=== PATIENT | female | born 1955 | race Caucasian/White ===

== ENCOUNTER 2024-09-22 08:53 | Inpatient (IN) | payer MEDICARE ==
--- NOTE | 2024-09-22 09:19 | ED ---
Skin/Abscess/FB HPI - General Chief complaint: Skin/Abscess/Foreign Body Stated complaint: Rash Time Seen by Provider: 09/22/24 09:17 Source: patient, RN notes reviewed Mode of arrival: ambulatory Limitations: no limitations - History of Present Illness Initial comments: 69-year-old female presenting to the ER for evaluation of a rash. Patient reports a past medical history significant of rheumatoid arthritis currently on methotrexate and lymphoma. Patient reports 10 days ago she noticed small bumps to right lower back. She looked in the mirror and noticed a rash. The following day she was seen at urgent care and started on acyclovir. She states over the past 10 days she has noticed rash to be spreading to her abdomen/groin and now involving anterior proximal right thigh. She reports over the past given she also noted spreading of rash superiorly on abdomen. Patient reports active blisters as well. She denies known fevers but admits to hot flashes and chills. Patient denies a history of MRSA. She contacted PCP today who instructed her to come to the ER for further evaluation given worsening of rash on antiviral medication. No other complaints. - Related Data Home Medications Medication Instructions Recorded Confirmed Albuterol Inhaler [Ventolin Hfa 2 puff INHALATION RT-QID PRN 09/22/24 09/22/24 Inhaler] Albuterol Nebulized [Ventolin 2.5 mg INHALATION RT-QID PRN 09/22/24 09/22/24 Nebulized] Anastrozole [Arimidex] 1 mg PO DAILY 09/22/24 09/22/24 Celecoxib [CeleBREX] 200 mg PO DAILY 09/22/24 09/22/24 Cyanocobalamin (Vitamin B-12) 1,000 mcg PO DAILY 09/22/24 09/22/24 [Vitamin B-12] Cyclobenzaprine [Flexeril] 5 - 10 mg PO DAILY PRN 09/22/24 09/22/24 Diclofenac Sodium Gel [Voltaren 1% 1 applic TOPICAL QID PRN 09/22/24 09/22/24 Gel] Fluticasone/Umeclidin/Vilanter 1 puff INHALATION RT-DAILY PRN 09/22/24 09/22/24 [Trelegy Ellipta 200-62.5-25] Folic Acid 3.2 mg PO DAILY 09/22/24 09/22/24 Gabapentin [Neurontin] 100 mg PO W/SUPPER 09/22/24 09/22/24 Gabapentin [Neurontin] 200 mg PO HS 09/22/24 09/22/24 HYDROcodone/APAP 10-325MG [[place] 0.5 tab PO QID 09/22/24 09/22/24 10-325] Latanoprost [Latanoprost 0.005%] 1 drop BOTH EYES HS 09/22/24 09/22/24 Levothyroxine Sodium [Synthroid] 125 mcg PO DAILY 09/22/24 09/22/24 Magnesium Oxide [Mag-Ox] 500 mg PO DAILY 09/22/24 09/22/24 Metoprolol Tartrate [Lopressor] 50 mg PO BID 09/22/24 09/22/24 Multivitamins, Thera [Multivitamin 1 tab PO DAILY 09/22/24 09/22/24 (formulary)] Nystatin 100,000 Unit/gm Powd 1 applic TOPICAL BID PRN 09/22/24 09/22/24 [Mycostatin Powder] Omeprazole Magnesium [PriLOSEC OTC] 20 mg PO DAILY PRN 09/22/24 09/22/24 Telmisartan [Micardis] 40 mg PO DAILY 09/22/24 09/22/24 amLODIPine [Norvasc] 10 mg PO DAILY 09/22/24 09/22/24 metHOTREXate sodium 2.5 mg PO DIRECTED 09/22/24 09/22/24 sulfaSALAzine [Azulfidine] 1,000 mg PO BID 09/22/24 09/22/24 timoloL [timoloL 0.5% Ophth Soln] 1 drop BOTH EYES DAILY 09/22/24 09/22/24 Allergies Allergy/AdvReac Type Severity Reaction Status Date / Time amoxicillin AdvReac Unknown Verified 09/22/24 11:24 Review of Systems ROS Statement: Those systems with pertinent positive or pertinent negative responses have been documented in the HPI. ROS Other: All systems not noted in ROS Statement are negative. Past Medical History Past Medical History: Cancer, Hypertension, Rheumatoid Arthritis (RA) History of Any Multi-Drug Resistant Organisms: None Reported Past Surgical History: Breast Surgery, Orthopedic Surgery Past Psychological History: No Psychological Hx Reported Smoking Status: Former smoker Past Alcohol Use History: Occasional Past Drug Use History: None Reported General Exam Limitations: no limitations General appearance: alert, in no apparent distress Respiratory exam: Present: normal lung sounds bilaterally. Absent: respiratory distress, wheezes, rales, rhonchi, stridor Cardiovascular Exam: Present: regular rate, normal rhythm, normal heart sounds. Absent: systolic murmur, diastolic murmur, rubs, gallop, clicks Neurological exam: Present: alert, oriented X3, CN II-XII intact Skin exam: Present: warm, dry, intact, normal color, rash (Erythematous macular rash consistent with shingles to right L2 dermatome. There is also involvement of L1 groin. Vesicles present. Rash does not cross midline.) Course Vital Signs 09/22/24 09/22/24 09/22/24 09:00 11:00 13:00 Temperature 97.8 F Pulse Rate 116 H 78 86 Respiratory 16 20 20 Rate Blood Pressure 178/96 140/89 130/86 O2 Sat by Pulse 95 98 98 Oximetry Medical Decision Making - Medical Decision Making Was pt. sent in by a medical professional or institution (, PA, MOLDING SUPERVISOR, urgent care, hospital, or care home...) When possible be specific @ -No Did you speak to anyone other than the patient for history (EMS, parent, family, police, friend...)? What history was obtained from this source @ -No Did you review nursing and triage notes (agree or disagree)? Why? @ -I reviewed and agree with nursing and triage notes Were old charts reviewed (outside hosp., previous admission, EMS record, old EKG, old radiological studies, urgent care reports/EKG's, care home records)? Report findings @ -No old charts were reviewed Differential Diagnosis (chest pain, altered mental status, abdominal pain women, abdominal pain men, vaginal bleeding, weakness, fever, dyspnea, syncope, headache, dizziness, GI bleed, back pain, seizure, CVA, palpatations, mental health, musculoskeletal)? @ -Herpes zoster, allergic reaction, Benjamin-Toro syndrome, cellulitis... This list is not meant to be all-inclusive EKG interpreted by me (3pts min.). @ -None done X-rays interpreted by me (1pt min.). @ -None done CT interpreted by me (1pt min.). @ -None done U/S interpreted by me (1pt. min.). @ -None done What testing was considered but not performed or refused? (CT, X-rays, U/S, labs)? Why? @ -None What meds were considered but not given or refused? Why? @ -Patient refused analgesic medications Did you discuss the management of the patient with other professionals (professionals i.e. , JUNIOR, MOLDING SUPERVISOR, lab, RT, psych nurse, transition social worker, acetylene plant operator, teacher, quality officer, telehealth case manager)? Give summary @ -Case discussed with Uriel jerry MOLDING SUPERVISOR, accepts admission. Was smoking cessation discussed for >3mins.? @ -No Was critical care preformed (if so, how long)? @ -No Were there social determinants of health that impacted care today? How? (H omelessness, low income, unemployed, alcoholism, drug addiction, transportation, low edu. Level, literacy, decrease access to med. care, group home, rehab)? @ -No Was there de-escalation of care discussed even if they declined (Discuss DNR or withdrawal of care, Hospice)? DNR status @ -No What co-morbidities impacted this encounter? (DM, HTN, Smoking, COPD, CAD, Cancer, CVA, ARF, Chemo, Hep., AIDS, mental health diagnosis, sleep apnea, morbid obesity)? @ -Rheumatoid arthritis on methotrexate, lymphoma Was patient admitted / discharged? Hospital course, mention meds given and route, prescriptions, significant lab abnormalities, going to OR and other pertinent info. @ -Admitted. 69-year-old female presented the ER for evaluation of rash. Upon arrival patient is tachycardic 116 bpm vitals otherwise except limits patient is well-appearing in no signs of acute distress. Exam remarkable for a rash consistent with shingles noted to right L2 dermatome. There is also involvement of the groin of L1. Vesicles are present. Rash does not cross midline. As patient is currently on oral acyclovir and has worsening of symptoms, laboratory studies obtained and significant for a WBC of 5.9, lactic 1.4. Given patient is immunocompromised with failure of outpatient treatment admission was considered and discussed with Mc Jerry NP, for IV antiviral treatment. ID on consult. Blood cultures obtained prior to acyclovir initiation. Patient refused analgesic medications. Upon reevaluation, patient resting comfortably in exam room no signs of acute distress. Results discussed with patient, all questions answered. Patient agreeable for admission. Patient admitted in stable condition. Case discussed with ED attending, Dr. Akers. Undiagnosed new problem with uncertain prognosis? @ -No Drug Therapy requiring intensive monitoring for toxicity (Heparin, Nitro, Insulin, Cardizem)? @ -No Were any procedures done? @ -No Diagnosis/symptom? @ -Herpes zoster/failure outpatient treatment Acute, or Chronic, or Acute on Chronic? @ -Acute Uncomplicated (without systemic symptoms) or Complicated (systemic symptoms)? @ -Complicated Side effects of treatment? @ -No Exacerbation, Progression, or Severe Exacerbation? @ -No Poses a threat to life or bodily function? How? (Chest pain, [place], [place], pneumonia, PE, COPD, DKA, ARF, appy, cholecystitis, CVA, Diverticulitis, Homicidal, Suicidal, threat to staff... and all critical care pts) @ -Yes can lead to sepsis and/or endorgan dysfunction. - Lab Data Result diagrams: 09/22/24 09:22 09/22/24 09:22 Lab Results 09/22/24 09/22/24 09/22/24 Range/Units 09:22 09:22 09:22 WBC 5.95 (4.50-10.00) 10*3/uL RBC 3.97 L (4.10-5.20) 10*6/uL Hgb 15.7 H (12.0-15.0) g/dL Hct 44.3 (37.2-46.3) % MCV 111.6 H (80.0-97.0) fL MCH 39.5 H (27.0-32.0) pg MCHC 35.4 (32.0-37.0) g/dL Plt Count 186 (140-440) 10*3/uL MPV 10.0 (9.5-12.2) fL Immature Gran % (Auto) 0.2 % Neutrophils % (Manual) 58 % Lymphocytes % (Manual) 24 % Monocytes % (Manual) 14 % Eosinophils % (Manual) 4 % Immature Gran # 0.01 (0.00-0.04) 10*3/uL Neutrophils # (Manual) 3.45 (1.3-7.7) k/uL Lymphocytes # (Manual) 1.43 (1.0-4.8) k/uL Monocytes # (Manual) 0.83 (0-1.0) k/uL Eosinophils # (Manual) 0.24 (0-0.7) k/uL Nucleated RBCs 0 (0-0) /100 WBC Manual Slide Review Performed Sodium 139 (137-145) mmol/L Potassium 4.5 (3.5-5.1) mmol/L Chloride 104 (98-107) mmol/L Carbon Dioxide 25 (22-30) mmol/L Anion Gap 10 mmol/L BUN 9 (7-17) mg/dL Creatinine 0.80 (0.52-1.04) mg/dL Est GFR (CKD-EPI)AfAm 88 (>60 ml/min/1.73 sqM) Est GFR (CKD-EPI)NonAf 77 (>60 ml/min/1.73 sqM) Glucose 105 H (74-99) mg/dL Plasma Lactic Acid Sly 1.4 (0.7-2.0) mmol/L Calcium 9.2 (8.4-10.2) mg/dL Total Bilirubin 1.0 (0.2-1.3) mg/dL AST 29 (14-36) U/L ALT 28 (4-34) U/L Alkaline Phosphatase 77 (38-126) U/L Total Protein 7.6 (6.3-8.2) g/dL Albumin 4.5 (3.5-5.0) g/dL Disposition Clinical Impression: Failure of outpatient treatment, Herpes zoster Disposition: ADMITTED IP TO THIS [facility] Condition: Stable Time of Disposition: 10:28
[2024-09-22 09:29] LABS: HCT 44.3 % (37.2-46.3); HGB 15.7 g/dL (12.0-15.0); MCH 39.5 pg (27.0-32.0); MCHC 35.4 g/dL (32.0-37.0); MCV 111.6 fL (80.0-97.0); Platelet Count 186 10*3/uL (140-440); RBC 3.97 10*6/uL (4.10-5.20); RDW 13.1 % (11.5-14.5); WBC 5.95 10*3/uL (4.50-10.00)
[2024-09-22 09:41] LABS: ALT 28 U/L (4-34); AST 29 U/L (14-36); African American GFR (CKD) 88 (>60 ml/min/1.73 sqM); Albumin 4.5 g/dL (3.5-5.0); Alkaline Phosphatase 77 U/L (38-126); Anion Gap 10 mmol/L; Blood Urea Nitrogen 9 mg/dL (7-17); Calcium 9.2 mg/dL (8.4-10.2); Carbon Dioxide 25 mmol/L (22-30); Chloride 104 mmol/L (98-107); Glucose 105 mg/dL (74-99); Non-African American GFR(CKD) 77 (>60 ml/min/1.73 sqM); Potassium 4.5 mmol/L (3.5-5.1); Sodium 139 mmol/L (137-145); Total Protein 7.6 g/dL (6.3-8.2)
[2024-09-22 10:13] LABS: Eosinophils # (M) 0.24 k/uL (0-0.7); Lymphocytes # (M) 1.43 k/uL (1.0-4.8); Monocytes # (M) 0.83 k/uL (0-1.0); Neutrophils # (M) 3.45 k/uL (1.3-7.7); Neutrophils % (M) 58 %; Nucleated Red Blood Cells 0 /100 WBC (0-0); Total Cells Counted 100
[2024-09-22] MEDS ORDERED: NALOXONE 0.4 MG/ML 1 ML VIAL IV PRN (10:18)
[2024-09-22] MEDS ORDERED: ACETAMINOPHEN TAB 325 MG TAB PO PRN ×2 (10:18→13:16)
[2024-09-22] MEDS ORDERED: SODIUM CHLORIDE 0.9% IV SCH (10:30)
[2024-09-22] MEDS ORDERED: ACYCLOVIR SODIUM IV SCH (10:30)
[2024-09-22] MEDS: ACYCLOVIR SODIUM 800 MG in SODIUM CHLORIDE 0.9% 250 ML IVPB ONE (10:44)
[2024-09-22] MEDS ORDERED: MORPHINE SULFATE 4 MG/ML SYRINGE IV PRN ×2 (13:16→18:09)
--- NOTE | 2024-09-22 13:16 | P.HPIM ---
History of Present Illness H&P Date: 09/22/24 History of Presenting Illness: Patient is a very pleasant 69-year-old female with a past medical history of hypertension, hypothyroidism, breast cancer status post surgery on anastrozole, lymphoma not currently undergoing treatment and rheumatoid arthritis on methotrexate. She presented to the emergency department secondary to herpetic lesions/rash. Patient reports first onset of pain and noted vesicular rash on 09/15/2024 and states that she went to urgent care and was diagnosed with shingles and started on acyclovir. Patient reports at that time she notified her supervisor clam bed and was told to stop taking her methotrexate and reports taking her Valtrex as prescribed with no improvement. Patient reports initially having vesicular rash to her right lower flank and reports this worsened and then began to extend to multiple dermatome regions throughout her pelvic/hip region into her groin and now with open vesicular lesions on her right thigh. Patient reports severe burning and pain but denies having any fevers, chills, diaphoresis, or any other complaints at this time. Upon arrival to our facility, patient underwent evaluation in the emergency department. Vital signs upon arrival show blood pressure 178/96, heart rate 116, respiratory rate 16, temp 97.8 F, and SpO2 of 95% on room air. Labs completed and reviewed. CBC showing polycythemia with hemoglobin of 15.7, MCV of 111.6, and MCH of 39.5. BMP unremarkable. Blood glucose 105. Lactic acid 1.4. Liver profile normal findings. Patient admitted under our services with consultation to infectious disease secondary to herpes zoster infection involving multiple dermatomes in immunocompromised patient. Patient requiring starting on IV acyclovir 10 mg/kg per dose every 8 hours. Patient placed in airborne isolation. Review of systems: Pertinent positives and negatives as discussed in HPI, a complete review of systems was performed and all other systems are negative. Physical exam: Vital signs reviewed and stable. General: Nontoxic, no distress and appears stated age. Derm: Skin warm and dry, normal coloration for ethnicity. Patient with very erythemic rash involving right flank, right hip and groin region, and right thigh consistent with shingles infection. Patient has areas of open clustered blisters on right thigh. Head: Atraumatic, normocephalic and symmetric. Eyes: EOM's intact, no lid lag, and anicteric sclera Mouth: no lip lesions, mucus membranes moist Cardiovascular: regular rate and rhythm with normal S1S2, no murmur, positive posterior tibial pulses bilaterally, and cap refill < 2 seconds. Lungs: Respirations even, regular, and unlabored on room air. Lungs CTA bilaterally, no rhonchi, no rales, no wheezing, and no accessory muscle usage. Abdominal: soft, nontender to palpation, no guarding, no appreciable organomegaly Ext: ROM intact. No gross muscle atrophy, no edema, no contractures Neuro: Speech clear, face symmetrical and CN II-XII grossly intact with no noted focal neuro deficits Psych: Alert and oriented to person, place, time, and situation. Appropriate and pleasant affect. Assessment and Plan of Care: Herpes zoster infection involving multiple dermatomes in immunocompromised patient. Rheumatoid on immunomodulator with methotrexate Lymphoma - Hold methotrexate - Patient started on IV acyclovir 10 mg/kg every 8 hours - Maintain airborne precautions -Consult placed to infectious disease - Symptomatic care and pain management with Neurontin 1 3 times daily, Tylenol 650 mg every 6 hours as needed for mild pain/fever, [place] 5-325 mg tablets every 4 hours as needed for moderate pain, and morphine 4 mg IVP Q4 hours for severe pain. Hypertension -Monitor vital signs and continue daily medication regimen with amlodipine 10 mg daily and losartan 100 mg daily. Hypothyroidism -Continue levothyroxine 125 mcg daily History of breast cancer -Continue anastrozole 1 mg daily. Data and imaging reviewed: As stated above in HPI The patient is admitted with an anticipated greater than 2 midnight stay for evaluation of herpes zoster infection involving multiple dermatomes in immunocompromised patient. CODE STATUS: Full code DVT prophylaxis: Lovenox Discussed with: Patient, RN, ED physician, and infectious disease physician Anticipated discharge date: Pending clinical course Anticipated discharge place: Home Patient was seen independently by Nurse Practitioner. This document was prepared using [employer] dictation software. Please allow for errors in aircraft line assembler while rare they do occur. Mc Gaffney NP rendered care for this patient independently, reviewed the findings and plan as documented in the note above and agree with plan. I did not physically speak with or examine the patient on this date. Past Medical History Past Medical History: Cancer, Hypertension, Rheumatoid Arthritis (RA) History of Any Multi-Drug Resistant Organisms: None Reported Past Surgical History: Breast Surgery, Orthopedic Surgery Past Psychological History: No Psychological Hx Reported Smoking Status: Former smoker Past Alcohol Use History: Occasional Past Drug Use History: None Reported Medications and Allergies Home Medications Medication Instructions Recorded Confirmed Type Albuterol Inhaler [Ventolin Hfa 2 puff INHALATION RT-QID PRN 09/22/24 09/22/24 History Inhaler] Albuterol Nebulized [Ventolin 2.5 mg INHALATION RT-QID PRN 09/22/24 09/22/24 History Nebulized] Anastrozole [Arimidex] 1 mg PO DAILY 09/22/24 09/22/24 History Celecoxib [CeleBREX] 200 mg PO DAILY 09/22/24 09/22/24 History Cyanocobalamin (Vitamin B-12) 1,000 mcg PO DAILY 09/22/24 09/22/24 History [Vitamin B-12] Cyclobenzaprine [Flexeril] 5 - 10 mg PO DAILY PRN 09/22/24 09/22/24 History Diclofenac Sodium Gel [Voltaren 1% 1 applic TOPICAL QID PRN 09/22/24 09/22/24 History Gel] Fluticasone/Umeclidin/Vilanter 1 puff INHALATION RT-DAILY PRN 09/22/24 09/22/24 History [Trelegy Ellipta 200-62.5-25] Folic Acid 3.2 mg PO DAILY 09/22/24 09/22/24 History Gabapentin [Neurontin] 100 mg PO W/SUPPER 09/22/24 09/22/24 History Gabapentin [Neurontin] 200 mg PO HS 09/22/24 09/22/24 History HYDROcodone/APAP 10-325MG [[place] 0.5 tab PO QID 09/22/24 09/22/24 History 10-325] Latanoprost [Latanoprost 0.005%] 1 drop BOTH EYES HS 09/22/24 09/22/24 History Levothyroxine Sodium [Synthroid] 125 mcg PO DAILY 09/22/24 09/22/24 History Magnesium Oxide [Mag-Ox] 500 mg PO DAILY 09/22/24 09/22/24 History Metoprolol Tartrate [Lopressor] 50 mg PO BID 09/22/24 09/22/24 History Multivitamins, Thera [Multivitamin 1 tab PO DAILY 09/22/24 09/22/24 History (formulary)] Nystatin 100,000 Unit/gm Powd 1 applic TOPICAL BID PRN 09/22/24 09/22/24 History [Mycostatin Powder] Omeprazole Magnesium [PriLOSEC OTC] 20 mg PO DAILY PRN 09/22/24 09/22/24 History Telmisartan [Micardis] 40 mg PO DAILY 09/22/24 09/22/24 History amLODIPine [Norvasc] 10 mg PO DAILY 09/22/24 09/22/24 History metHOTREXate sodium 2.5 mg PO DIRECTED 09/22/24 09/22/24 History sulfaSALAzine [Azulfidine] 1,000 mg PO BID 09/22/24 09/22/24 History timoloL [timoloL 0.5% Oph Soln] 1 drop BOTH EYES DAILY 09/22/24 09/22/24 History Allergies Allergy/AdvReac Type Severity Reaction Status Date / Time amoxicillin AdvReac Unknown Verified 09/22/24 11:24 Physical Exam Vitals: Vital Signs Temp Pulse Resp BP Pulse Ox 09/22/24 09:00 97.8 F 116 H 16 178/96 95 Intake and Output 09/21/24 09/22/24 09/22/24 22:59 06:59 14:59 Other: Weight 105.233 kg Results CBC & Chem 7: 09/22/24 09:22 09/22/24 09:22 Labs: Abnormal Lab Results - Last 24 Hours (Table) 09/22/24 09/22/24 Range/Units 09:22 09:22 RBC 3.97 L (4.10-5.20) 10*6/uL Hgb 15.7 H (12.0-15.0) g/dL MCV 111.6 H (80.0-97.0) fL MCH 39.5 H (27.0-32.0) pg Glucose 105 H (74-99) mg/dL
[2024-09-22] MEDS ORDERED: ALBUTEROL NEBULIZED 2.5 MG/3 ML INHALATION PRN ×2 (13:17)
[2024-09-22] MEDS ORDERED: NON FORMULARY DRUG (Fluticasone/Umeclidin/Vilanter [Trelegy Ellipta 200-62.5-25] 1 EACH Bl INHALATION PRN (13:17)
[2024-09-22] MEDS ORDERED: PANTOPRAZOLE 40 MG TABLET PO PRN (13:17)
[2024-09-22] MEDS: HYDROmorphone 0.5 MG/0.5 ML SYRINGE IVP STA (16:24)
[2024-09-22] MEDS: KETOROLAC 15 MG/ML 1 ML VIAL IVP STA (16:25)
[2024-09-22] MEDS: ACYCLOVIR SODIUM 800 MG in SODIUM CHLORIDE 0.9% 250 ML IVPB SCH (17:15)
[2024-09-22] MEDS: GABAPENTIN 100 MG CAP PO SCH ×2 (17:15→21:31)
[2024-09-22] MEDS: SYMBICORT 160-4.5 MCG INHALER INHALATION SCH (19:43)
[2024-09-22] MEDS: LOSARTAN 50 MG TAB PO SCH (21:31)
[2024-09-22] MEDS: METOPROLOL TARTRATE 50 MG TAB PO SCH (21:31)
[2024-09-22] MEDS: LATANOPROST 0.005% OPHTH DROPS 2.5 ML BTL BOTH EYES SCH (21:31)
[2024-09-22] MEDS: HYDROcodone/APAP 5-325MG 1 EACH TAB PO PRN (21:49)
--- NOTE | 2024-09-22 22:06 | P.CONS ---
History of Present Illness - Reason for Consult Consult date: 09/22/24 Herpes zoster failing outpatient treatment Requesting physician: Diya Carlson - Chief Complaint Worsening rash to the lower abdominal x few days - History of Present Illness Patient is a 69-year-old female with a past medical history significant for hypertension rheumatoid arthritis presenting to the hospital for further evaluation of her rash to the groin and lower back area patient symptoms started more than a week ago and the patient has been evaluated in the urgent care with the patient started on acyclovir however the patient noticed the rash seem to have been spreading and getting more intense in the suprapubic area patient complaining of some burning pain associated with a moderate intensity did not have any skin breakdown or any drainage denies any high-grade fever or chills with the symptoms the patient has been evaluated on presentation to the hospital patient was afebrile no fever have been ordered subsequently patient was not tachycardic hypotensive or hypoxic she did have white count of 5.95 creatinine 0.80 electrolytes has been normal liver enzymes are normal Case discussed with me by the admitting team patient has been started on acyclovir pending further evaluation Review of Systems Positive point and negatives has been mentioned in the HPI, complete review of systems was performed and all other systems are negative Past Medical History Past Medical History: Cancer, Hypertension, Rheumatoid Arthritis (RA) History of Any Multi-Drug Resistant Organisms: None Reported Past Surgical History: Breast Surgery, Orthopedic Surgery Past Psychological History: No Psychological Hx Reported Smoking Status: Former smoker Past Alcohol Use History: Occasional Past Drug Use History: None Reported Medications and Allergies Home Medications Medication Instructions Recorded Confirmed Type Albuterol Inhaler [Ventolin Hfa 2 puff INHALATION RT-QID PRN 09/22/24 09/22/24 History Inhaler] Albuterol Nebulized [Ventolin 2.5 mg INHALATION RT-QID PRN 09/22/24 09/22/24 History Nebulized] Anastrozole [Arimidex] 1 mg PO DAILY 09/22/24 09/22/24 History Celecoxib [CeleBREX] 200 mg PO DAILY 09/22/24 09/22/24 History Cyanocobalamin (Vitamin B-12) 1,000 mcg PO DAILY 09/22/24 09/22/24 History [Vitamin B-12] Cyclobenzaprine [Flexeril] 5 - 10 mg PO DAILY PRN 09/22/24 09/22/24 History Diclofenac Sodium Gel [Voltaren 1% 1 applic TOPICAL QID PRN 09/22/24 09/22/24 History Gel] Fluticasone/Umeclidin/Vilanter 1 puff INHALATION RT-DAILY PRN 09/22/24 09/22/24 History [Trelegy Ellipta 200-62.5-25] Folic Acid 3.2 mg PO DAILY 09/22/24 09/22/24 History Gabapentin [Neurontin] 100 mg PO W/SUPPER 09/22/24 09/22/24 History Gabapentin [Neurontin] 200 mg PO HS 09/22/24 09/22/24 History HYDROcodone/APAP 10-325MG [[place] 0.5 tab PO QID 09/22/24 09/22/24 History 10-325] Latanoprost [Latanoprost 0.005%] 1 drop BOTH EYES HS 09/22/24 09/22/24 History Levothyroxine Sodium [Synthroid] 125 mcg PO DAILY 09/22/24 09/22/24 History Magnesium Oxide [Mag-Ox] 500 mg PO DAILY 09/22/24 09/22/24 History Metoprolol Tartrate [Lopressor] 50 mg PO BID 09/22/24 09/22/24 History Multivitamins, Thera [Multivitamin 1 tab PO DAILY 09/22/24 09/22/24 History (formulary)] Nystatin 100,000 Unit/gm Powd 1 applic TOPICAL BID PRN 09/22/24 09/22/24 History [Mycostatin Powder] Omeprazole Magnesium [PriLOSEC OTC] 20 mg PO DAILY PRN 09/22/24 09/22/24 History Telmisartan [Micardis] 40 mg PO DAILY 09/22/24 09/22/24 History amLODIPine [Norvasc] 10 mg PO DAILY 09/22/24 09/22/24 History metHOTREXate sodium 2.5 mg PO DIRECTED 09/22/24 09/22/24 History sulfaSALAzine [Azulfidine] 1,000 mg PO BID 09/22/24 09/22/24 History timoloL [timoloL 0.5% Ophth Soln] 1 drop BOTH EYES DAILY 09/22/24 09/22/24 History Allergies Allergy/AdvReac Type Severity Reaction Status Date / Time amoxicillin AdvReac Unknown Verified 09/22/24 11:24 Physical Exam Vitals: Vital Signs Temp Pulse Resp BP Pulse Ox 09/22/24 09:00 97.8 F 116 H 16 178/96 95 Intake and Output 09/21/24 09/22/24 09/22/24 22:59 06:59 14:59 Other: Weight 105.233 kg GENERAL DESCRIPTION: Elderly Female up in bed, no distress. No tachypnea or accessory muscle of respiration use. HEENT: Shows Pallor , no scleral icterus. Oral mucous membrane is dry. No pharyngeal erythema or thrush NECK: Trachea central, no thyromegaly. LUNGS: Unlabored breathing. Clear to auscultation anteriorly. No wheeze or crackle. HEART: S1, S2, regular rate and rhythm. No loud murmur ABDOMEN: Soft, no tenderness , guarding or rigidity, no organomegaly EXTREMITIES: No edema of feet. SKIN: Patient did have a rash that is currently involving L1 as well as L2 nerve distribution did have erythema but no drainage NEUROLOGICAL: The patient is awake, alert, oriented x3, mood and affect normal. Results CBC & Chem 7: 09/22/24 09:22 09/22/24 09:22 Labs: Abnormal Lab Results - Last 24 Hours (Table) 09/22/24 09/22/24 Range/Units 09:22 09:22 RBC 3.97 L (4.10-5.20) 10*6/uL Hgb 15.7 H (12.0-15.0) g/dL MCV 111.6 H (80.0-97.0) fL MCH 39.5 H (27.0-32.0) pg Glucose 105 H (74-99) mg/dL Assessment and Plan (1) Penicillin allergy Current Visit: Yes Status: Acute Code(s): Z88.0 - ALLERGY STATUS TO PENICILLIN SNOMED Code(s): 73485644 (2) Failure of outpatient treatment Current Visit: Yes Status: Acute Code(s): Z78.9 - OTHER SPECIFIED HEALTH STATUS SNOMED Code(s): 217349480 (3) Herpes zoster Current Visit: Yes Status: Acute Code(s): B02.9 - ZOSTER WITHOUT COMPLICATIONS SNOMED Code(s): 4287229 Plan: 1patient presented to hospital with worsening rash that seem to be involving 2 different dermatome including L1 as well as L2 on the right side failing outpatient acyclovir treatment she evaluated clear about the dosing with her she received low-dose versus her immunosuppression because of methotrexate because there is delayed healing and possible failure of the oral acyclovir, currently with no evidence of any secondary bacterial cellulitis in this patient with no fever or elevated white count 2-patient will be treated with acyclovir 10 mg per KG every 8 hours 3-droplet isolation We will follow on clinical condition and cultures to further adjust medication if needed Thank you for this consultation we will follow the patient along with you Dictation was produced using [employer] software. please excuse any grammatical, word or spelling errors.
[2024-09-23] MEDS: LEVOTHYROXINE 125 MCG TAB PO SCH (05:56)
[2024-09-23] MEDS: TIOTROPIUM 2.5 MCG INHALER INHALATION SCH (08:23)
[2024-09-23 08:33] LABS: HGB 13.4 g/dL (12.0-15.0); MCH 38.4 pg (27.0-32.0); MCHC 33.5 g/dL (32.0-37.0); MCV 114.6 FL (80.0-97.0); Mean Platelet Volume 11.1 FL (9.5-12.2); NRBC Per 100 WBC 0 X 10*3/uL (0.00-0.01); Platelet Count 168 X 10*3/uL (140-440); RBC 3.49 X 10*6/uL (4.10-5.20); RDW 13.9 % (11.5-14.5); WBC 4.99 X 10*3/uL (4.50-10.00)
[2024-09-23] MEDS ORDERED: LOSARTAN 50 MG TAB PO SCH (09:00)
[2024-09-23 09:02] LABS: BUN/Creat Ratio 11.29 Ratio (12.00-20.00); Blood Urea Nitrogen 7.9 mg/dL (9.0-27.0); Calcium 8.6 mg/dL (8.7-10.3); Chloride 107 mmol/L (96-109); Glucose 95 mg/dL (70-110); Magnesium 2.2 mg/dL (1.5-2.4); Potassium 4.6 mmol/L (3.5-5.5); Sodium 140 mmol/L (135-145)
[2024-09-23] MEDS: MULTIVITAMINS, THERA 1 EACH TAB PO SCH (09:42)
[2024-09-23] MEDS: CYANOCOBALAMIN 500 MCG TAB PO SCH (09:43)
[2024-09-23] MEDS: amLODIPine 10 MG TAB PO SCH (09:43)
[2024-09-23] MEDS: ENOXAPARIN 40 MG/0.4 ML SYRINGE SQ SCH (09:43)
[2024-09-23] MEDS: ANASTROZOLE 1 MG TAB PO SCH (09:44)
[2024-09-23] MEDS: MELOXICAM 7.5 MG TAB PO SCH (09:54)
[2024-09-23] MEDS: TIMOLOL 0.5% OPHTH DROPS 5 ML BTL BOTH EYES SCH (12:34)
[2024-09-23] MEDS: cefTRIAXone 2 GM in DEXTROSE 5% IN WATER 50 ML IVPB SCH (14:30)
--- NOTE | 2024-09-23 16:08 | P.PN ---
Subjective Progress Note Date: 09/23/24 Principal diagnosis: Reason for follow-up is shingles and cellulitis Patient is a 69-year-old female with a past medical history significant for hypertension rheumatoid arthritis presenting to the hospital for further evaluation of her rash to the groin and lower back area that has been diagnosed with the Valtrex but not improvement. On today's evaluation that is 09/23/2024, Patient is afebrile patient is currently on room air and denies having any shortness of breath, the patient denies any chest pain or cough, the patient denies any nausea vomiting patient still complaining of discomfort to the lower abdominal pelvic area rash is about the same did have some blister close to the vagina area but no drainage. Patient white count is 4.99, creatinine 0.7 Objective - Vital Signs Vital signs: Vital Signs Temp 99.2 F 09/23/24 07:50 Pulse 79 09/23/24 07:50 Resp 16 09/23/24 09:44 BP 149/88 09/23/24 07:50 Pulse Ox 93 L 09/23/24 07:50 FiO2 Intake & Output 09/22/24 09/23/24 09/23/24 18:59 06:59 18:59 Weight 105.233 kg Other: Voiding Method Toilet Toilet # Voids 1 - Exam GENERAL DESCRIPTION: An elderly female lying in bed in no distress RESPIRATORY SYSTEM: Unlabored breathing , decreased breath sounds at bases HEART: S1 S2 regular rate and rhythm , ABDOMEN: Soft , no tenderness Rash to the lower abdomen pubic area with low intensity in the pubic area some blisters - Labs CBC & Chem 7: 09/23/24 05:38 09/23/24 05:38 Labs: Abnormal Lab Results - Last 24 Hours (Table) 09/23/24 09/23/24 Range/Units 05:38 05:38 RBC 3.49 L (4.10-5.20) X 10*6/uL MCV 114.6 H (80.0-97.0) FL MCH 38.4 H (27.0-32.0) pg BUN 7.9 L (9.0-27.0) mg/dL BUN/Creatinine Ratio 11.29 L (12.00-20.00) Ratio Calcium 8.6 L (8.7-10.3) mg/dL Assessment and Plan (1) Penicillin allergy Current Visit: Yes Status: Acute Code(s): Z88.0 - ALLERGY STATUS TO PENICILLIN SNOMED Code(s): 86914936 (2) Failure of outpatient treatment Current Visit: Yes Status: Acute Code(s): Z78.9 - OTHER SPECIFIED HEALTH STATUS SNOMED Code(s): 741815517 (3) Herpes zoster Current Visit: Yes Status: Acute Code(s): B02.9 - ZOSTER WITHOUT COMPLICATIONS SNOMED Code(s): 2143455 Plan: 1patient presented to hospital with worsening rash that seem to be involving 2 different dermatome including L1 as well as L2 on the right side failing outpatient acyclovir treatment she evaluated clear about the dosing with her she received low-dose versus her immunosuppression because of methotrexate because there is delayed healing and possible failure of the oral acyclovir, 2-patient will be treated with acyclovir 10 mg per KG every 8 hours 3-patient noticed to have a more concentrated erythema to the pubic area and concern for possible cellulitis will add Rocephin and see clinical response Dictation was produced using [employer] dictation software. please excuse any grammatical, word or spelling errors. Time with Patient: Less than 30
--- NOTE | 2024-09-23 17:41 | P.PN ---
Subjective Progress Note Date: 09/23/24 Hospital Course: Patient is a very pleasant 69-year-old female with a past medical history of hypertension, hypothyroidism, breast cancer status post surgery on anastrozole, lymphoma not currently undergoing treatment and rheumatoid arthritis on methotrexate. She presented to the emergency department secondary to herpetic lesions/rash. Patient reports first onset of pain and noted vesicular rash on 09/15/2024 and states that she went to urgent care and was diagnosed with shingles and started on Valtrex 1 g every 8 hours x 7 days. Patient reports at that time she notified her business administration professor and was told to stop taking her methotrexate and reports taking her Valtrex as prescribed with no improvement. Patient reports initially having vesicular rash to her right lower flank and reports this worsened and then began to extend to multiple dermatome regions throughout her pelvic/hip region into her groin and now with open vesicular lesions on her right thigh. Patient reports severe burning and pain but denies having any fevers, chills, diaphoresis, or any other complaints at this time. Upon arrival to our facility, patient underwent evaluation in the emergency department. Vital signs upon arrival show blood pressure 178/96, heart rate 116, respiratory rate 16, temp 97.8 F, and SpO2 of 95% on room air. Labs completed and reviewed. CBC showing polycythemia with hemoglobin of 15.7, MCV of 111.6, and MCH of 39.5. BMP unremarkable. Blood glucose 105. Lactic acid 1.4. Liver profile normal findings. Patient admitted under our services with consultation to infectious disease secondary to herpes zoster infection involving multiple dermatomes in immunocompromised patient. Patient requiring starting on IV acyclovir 10 mg/kg per dose every 8 hours. Patient placed in airborne isolation. Physical exam: Patient seen and fully evaluated at bedside this morning. She reports slightly worsening of rash stating she had a couple blisters pop overnight and new c luster of blisters near vaginal region as well as to right thigh. Vaginal region also with increased erythema. Vital signs reviewed and stable. General: Nontoxic, no distress and appears stated age. Derm: Skin warm and dry, normal coloration for ethnicity. Patient with very erythemic rash involving right flank, right hip and groin region, and right thigh consistent with shingles infection. Patient has areas of open clustered blisters on right thigh. Head: Atraumatic, normocephalic and symmetric. Eyes: EOM's intact, no lid lag, and anicteric sclera Mouth: no lip lesions, mucus membranes moist Cardiovascular: regular rate and rhythm with normal S1S2, no murmur, positive posterior tibial pulses bilaterally, and cap refill < 2 seconds. Lungs: Respirations even, regular, and unlabored on room air. Lungs CTA bilaterally, no rhonchi, no rales, no wheezing, and no accessory muscle usage. Abdominal: soft, nontender to palpation, no guarding, no appreciable organomegaly Ext: ROM intact. No gross muscle atrophy, no edema, no contractures Neuro: Speech clear, face symmetrical and CN II-XII grossly intact with no noted focal neuro deficits Psych: Alert and oriented to person, place, time, and situation. Appropriate and pleasant affect. Assessment and Plan of Care: Herpes zoster infection involving multiple dermatomes in immunocompromised patient. Rheumatoid on immunomodulator with methotrexate Lymphoma - Hold methotrexate - Continue IV acyclovir 10 mg/kg every 8 hours - Maintain airborne precautions - Infectious disease following and discussed plan of care with Dr. Bah. In addition to acyclovir patient also started on Rocephin 2 g daily for concerns of developing cellulitis in addition to herpes zoster infection near vaginal/periorbital region - Symptomatic care and pain management with Neurontin 1 3 times daily, Tylenol 650 mg every 6 hours as needed for mild pain/fever, [place] 5-325 mg tablets every 4 hours as needed for moderate pain, and morphine 4 mg IVP Q4 hours for severe pain. Hypertension -Monitor vital signs and continue daily medication regimen with amlodipine 10 mg daily and losartan 100 mg daily. Hypothyroidism -Continue levothyroxine 125 mcg daily History of breast cancer -Continue anastrozole 1 mg daily. Data and imaging reviewed: Morning labs reviewed. CBC showing macrocytosis with MCV of 114.6 and MCH of 38.4. Hemoglobin stable at 13.4 and WBC count of 4.99. BMP unremarkable. Blood glucose 95. Magnesium 2.2. Vital signs reviewed. Blood pressure 149/88, heart rate 79, respiratory rate 16, temp 99.2 F, and SpO2 of 93% on room air CODE STATUS: Full code DVT prophylaxis: Lovenox Discussed with: Patient, RN, ED physician, and infectious disease physician Anticipated discharge date: Pending clinical course Anticipated discharge place: Home Patient was seen independently by Nurse Practitioner. This document was prepared using Dragon dictation software. Please allow for errors in automatic glove former while rare they do occur. Mc Gaffney, WELDING MACHINE OPERATOR ELECTRO [employer]AS rendered care for this patient independently, reviewed the findings and plan as documented in the note above and agree with plan. I did not physically speak with or examine the patient on this date. Objective - Vital Signs Vital signs: Vital Signs Temp 99.2 F 09/23/24 07:50 Pulse 79 09/23/24 07:50 Resp 16 09/23/24 07:50 BP 149/88 09/23/24 07:50 Pulse Ox 93 L 09/23/24 07:50 FiO2 Intake & Output 09/22/24 09/23/24 09/23/24 18:59 06:59 18:59 Weight 105.233 kg Other: Voiding Method Toilet # Voids 1 - Labs CBC & Chem 7: 09/23/24 05:38 09/23/24 05:38 Labs: Abnormal Lab Results - Last 24 Hours (Table) 09/22/24 09/22/24 09/23/24 Range/Units 09:22 09:22 05:38 RBC 3.97 L 3.49 L (4.10-5.20) 10*6/uL Hgb 15.7 H (12.0-15.0) g/dL MCV 111.6 H 114.6 H (80.0-97.0) fL MCH 39.5 H 38.4 H (27.0-32.0) pg BUN (9.0-27.0) mg/dL BUN/Creatinine Ratio (12.00-20.00) Ratio Glucose 105 H (74-99) mg/dL Calcium (8.7-10.3) mg/dL 09/23/24 Range/Units 05:38 RBC (4.10-5.20) 10*6/uL Hgb (12.0-15.0) g/dL MCV (80.0-97.0) fL MCH (27.0-32.0) pg BUN 7.9 L (9.0-27.0) mg/dL BUN/Creatinine Ratio 11.29 L (12.00-20.00) Ratio Glucose (74-99) mg/dL Calcium 8.6 L (8.7-10.3) mg/dL
[2024-09-24 12:09] LABS: Glucose,Whole Blood 94 mg/dL (70-110)
[2024-09-24] MEDS: NYSTATIN 100,000 UNIT/GM POWD 15 GM TOPICAL SCH (15:23)
--- NOTE | 2024-09-24 16:40 | P.PN ---
Subjective Progress Note Date: 09/24/24 Hospital Course: Patient is a very pleasant 69-year-old female with a past medical history of hypertension, hypothyroidism, breast cancer status post surgery on anastrozole, lymphoma not currently undergoing treatment and rheumatoid arthritis on methotrexate. She presented to the emergency department secondary to herpetic lesions/rash. Patient reports first onset of pain and noted vesicular rash on 09/15/2024 and states that she went to urgent care and was diagnosed with shingles and started on Valtrex 1 g every 8 hours x 7 days. Patient reports at that time she notified her steam crane operator and was told to stop taking her methotrexate and reports taking her Valtrex as prescribed with no improvement. Patient reports initially having vesicular rash to her right lower flank and reports this worsened and then began to extend to multiple dermatome regions throughout her pelvic/hip region into her groin and now with open vesicular lesions on her right thigh. Patient reports severe burning and pain but denies having any fevers, chills, diaphoresis, or any other complaints at this time. Upon arrival to our facility, patient underwent evaluation in the emergency department. Vital signs upon arrival show blood pressure 178/96, heart rate 116, respiratory rate 16, temp 97.8 F, and SpO2 of 95% on room air. Labs completed and reviewed. CBC showing polycythemia with hemoglobin of 15.7, MCV of 111.6, and MCH of 39.5. BMP unremarkable. Blood glucose 105. Lactic acid 1.4. Liver profile normal findings. Patient admitted under our services with consultation to infectious disease secondary to herpes zoster infection involving multiple dermatomes in immunocompromised patient. Patient requiring starting on IV acyclovir 10 mg/kg per dose every 8 hours. Patient placed in airborne isolation. Physical exam: Patient seen and fully evaluated at bedside this morning. Erythema and vesicular rash appears to be improved. Patient was only noted to have 1 cluster of blisters on right lower flank/back otherwise remaining blisters appear to have all crusted over. Erythema to groin also showing improvement but she did have small amount of excoriation. Patient reports continued burning severe nerve pain. Vital signs reviewed and stable. General: Nontoxic, no distress and appears stated age. Derm: Skin warm and dry, normal coloration for ethnicity. Patient with erythemic rash involving right flank, right hip, groin region, and right thigh consistent with shingles infection. Patient has cluster of new vesicles right lower flank/back all other blisters appear to have crusted over at this time Head: Atraumatic, normocephalic and symmetric. Eyes: EOM's intact, no lid lag, and anicteric sclera Mouth: no lip lesions, mucus membranes moist Cardiovascular: regular rate and rhythm with normal S1S2, no murmur, positive posterior tibial pulses bilaterally, and cap refill < 2 seconds. Lungs: Respirations even, regular, and unlabored on room air. Lungs CTA bilaterally, no rhonchi, no rales, no wheezing, and no accessory muscle usage. Abdominal: soft, nontender to palpation, no guarding, no appreciable organomegaly Ext: ROM intact. No gross muscle atrophy, no edema, no contractures Neuro: Speech clear, face symmetrical and CN II-XII grossly intact with no noted focal neuro deficits Psych: Alert and oriented to person, place, time, and situation. Appropriate and pleasant affect. Assessment and Plan of Care: Herpes zoster infection involving multiple dermatomes in immunocompromised patient accompanied by the development of cellulitis in right groin/upper thigh region. Rheumatoid on immunomodulator with methotrexate Lymphoma - Hold methotrexate - Continue IV acyclovir 10 mg/kg every 8 hours - Continue IV Rocephin 2 g every 24 hours - Maintain airborne precautions - Infectious disease following and discussed plan of care with Dr. Mccabe. - Symptomatic care and pain management with Neurontin 100 mg 3 times daily, Tylenol 650 mg every 6 hours as needed for mild pain/fever, [place] 5-325 mg tablets every 4 hours as needed for moderate pain, and morphine 4 mg IVP Q4 hours for severe pain. Hypertension -Monitor vital signs and continue daily medication regimen with amlodipine 10 mg daily and losartan 100 mg daily. Hypothyroidism -Continue levothyroxine 125 mcg daily History of breast cancer -Continue anastrozole 1 mg daily. Data and imaging reviewed: Labs reviewed. CBC showing macrocytosis with MCV of 114.6 and MCH of 38.4. Hemoglobin stable at 13.4 and WBC count of 4.99. BMP unremarkable. Blood glucose 95. Magnesium 2.2. Vital signs reviewed. Blood pressure elevated this morning at 163/94, heart rate 72, respiratory rate 16, temp 97.6 F, and SpO2 of 97% on room air. CODE STATUS: Full code DVT prophylaxis: Lovenox Discussed with: Patient, RN, and infectious disease physician Anticipated discharge date: Pending clinical course Anticipated discharge place: Home Patient was seen independently by Nurse Practitioner. This document was prepared using [employer] dictation software. Please allow for errors in furnace checker while rare they do occur. Mc Gaffney NP rendered care for this patient independently, reviewed the findings and plan as documented in the note above and agree with plan. I did not physically speak with or examine the patient on this date. Objective - Vital Signs Vital signs: Vital Signs Temp 97.6 F 09/24/24 08:30 Pulse 72 09/24/24 08:30 Resp 16 09/24/24 08:30 BP 163/94 09/24/24 08:30 Pulse Ox 97 09/24/24 08:30 FiO2 Intake & Output 09/23/24 09/24/24 09/24/24 18:59 06:59 18:59 Intake Total 360 Balance 360 Intake: Oral 360 Other: Voiding Method Toilet Toilet # Voids 2 - Labs CBC & Chem 7: 09/23/24 05:38 09/23/24 05:38 Labs: Microbiology - Last 24 Hours (Table) 09/22/24 10:21 Blood Culture - Preliminary Blood
[2024-09-24] MEDS: PREGABALIN 25 MG CAP PO SCH (18:17)
[2024-09-24] MEDS: ACYCLOVIR SODIUM 800 MG in SODIUM CHLORIDE 0.9% 250 ML IVPB SCH (21:25)
--- NOTE | 2024-09-24 22:04 | P.PN ---
Subjective Progress Note Date: 09/24/24 Principal diagnosis: Reason for follow-up is shingles and cellulitis Patient is a 69-year-old female with a past medical history significant for hypertension rheumatoid arthritis presenting to the hospital for further evaluation of her rash to the groin and lower back area that has been diagnosed with the Valtrex but not improvement. On today's evaluation that is 09/24/2024, patient has been afebrile, patient is breathing comfortably and is currently on room air, patient denies having any chest pain and cough, patient denies nausea vomiting or diarrhea, the patient lower abdominal and pubic area redness has decreased with complaining of pain to the area. No new lab has been obtained today blood culture has been negative Objective - Vital Signs Vital signs: Vital Signs Temp 98.0 F 09/24/24 20:00 Pulse 65 09/24/24 20:00 Resp 17 09/24/24 20:00 BP 169/65 09/24/24 20:00 Pulse Ox 95 09/24/24 20:00 FiO2 Intake & Output 09/24/24 09/24/24 09/25/24 06:59 18:59 06:59 Intake Total 720 Balance 720 Intake: Oral 720 Other: Voiding Method Toilet Toilet # Voids 2 4 - Exam GENERAL DESCRIPTION: An elderly female lying in bed in no distress RESPIRATORY SYSTEM: Unlabored breathing , decreased breath sounds at bases HEART: S1 S2 regular rate and rhythm , ABDOMEN: Soft , no tenderness Rash to the lower abdomen pubic area has decreased in intensity - Labs CBC & Chem 7: 09/23/24 05:38 09/23/24 05:38 Labs: Microbiology - Last 24 Hours (Table) 09/22/24 10:21 Blood Culture - Preliminary Blood Assessment and Plan (1) Penicillin allergy Current Visit: Yes Status: Acute Code(s): Z88.0 - ALLERGY STATUS TO PE NICILLIN SNOMED Code(s): 42785274 (2) Failure of outpatient treatment Current Visit: Yes Status: Acute Code(s): Z78.9 - OTHER SPECIFIED HEALTH STATUS SNOMED Code(s): 669455543 (3) Herpes zoster Current Visit: Yes Status: Acute Code(s): B02.9 - ZOSTER WITHOUT COMPLICATIONS SNOMED Code(s): 6740971 Plan: 1patient presented to hospital with worsening rash that seem to be involving 2 different dermatome including L1 as well as L2 on the right side failing outpatient acyclovir treatment she evaluated clear about the dosing with her she received low-dose versus her immunosuppression because of methotrexate because there is delayed healing and possible failure of the oral acyclovir, 2-patient will be treated with acyclovir 10 mg per KG every 8 hours 3-patient noticed to have a more concentrated erythema to the pubic area and concern for possible cellulitis for the patient with started on Rocephin and seem to have responded we will continue with Rocephin consider adding Lyrica for postherpetic neuralgia discussed with the nursing staff Dictation was produced using [employer] dictation software. please excuse any grammatical, word or spelling errors. Time with Patient: Less than 30
[2024-09-25 08:36] VITALS: RESP 16; TEMP 98.1
[2024-09-25] MEDS ORDERED: PREGABALIN 25 MG CAP PO SCH (09:00)
[2024-09-25] MEDS: amLODIPine 10 MG TAB PO SCH (09:31)
[2024-09-25 10:40] LABS: HCT 41.1 % (37.2-46.3); HGB 14.1 g/dL (12.0-15.0); MCHC 34.3 g/dL (32.0-37.0); MCV 113.5 FL (80.0-97.0); Mean Platelet Volume 10.5 FL (9.5-12.2); NRBC Per 100 WBC 0 X 10*3/uL (0.00-0.01); Platelet Count 162 X 10*3/uL (140-440); RBC 3.62 X 10*6/uL (4.10-5.20); RDW 13.5 % (11.5-14.5); WBC 4.69 X 10*3/uL (4.50-10.00)
[2024-09-25] MEDS: PREGABALIN 75 MG CAP PO SCH (10:49)
[2024-09-25 11:02] LABS: ALT 25 U/L (8-44); AST 23 U/L (13-35); Albumin 3.9 g/dL (3.8-4.9); Albumin/Globulin Ratio 1.44 Ratio (1.60-3.17); Alkaline Phosphatase 66 U/L (41-126); BUN/Creat Ratio 8.43 Ratio (12.00-20.00); Blood Urea Nitrogen 5.9 mg/dL (9.0-27.0); Calcium 8.7 mg/dL (8.7-10.3); Carbon Dioxide 23.8 mmol/L (21.6-31.8); Chloride 106 mmol/L (96-109); Globulin 2.7 g/dL (1.6-3.3); Glucose 100 mg/dL (70-110); Magnesium 2.3 mg/dL (1.5-2.4); Potassium 3.8 mmol/L (3.5-5.5); Sodium 142 mmol/L (135-145); Total Bilirubin 0.3 mg/dL (0.3-1.2); Total Protein 6.6 g/dL (6.2-8.2)
--- NOTE | 2024-09-25 15:21 | P.PN ---
Subjective Progress Note Date: 09/25/24 Hospital Course: Patient is a very pleasant 69-year-old female with a past medical history of hypertension, hypothyroidism, breast cancer status post surgery on anastrozole, lymphoma not currently undergoing treatment and rheumatoid arthritis on methotrexate. She presented to the emergency department secondary to herpetic lesions/rash. Patient reports first onset of pain and noted vesicular rash on 09/15/2024 and states that she went to urgent care and was diagnosed with shingles and started on Valtrex 1 g every 8 hours x 7 days. Patient reports at that time she notified her court administrator and was told to stop taking her methotrexate and reports taking her Valtrex as prescribed with no improvement. Patient reports initially having vesicular rash to her right lower flank and reports this worsened and then began to extend to multiple dermatome regions throughout her pelvic/hip region into her groin and now with open vesicular lesions on her right thigh. Patient reports severe burning and pain but denies having any fevers, chills, diaphoresis, or any other complaints at this time. Upon arrival to our facility, patient underwent evaluation in the emergency department. Vital signs upon arrival show blood pressure 178/96, heart rate 116, respiratory rate 16, temp 97.8 F, and SpO2 of 95% on room air. Labs completed and reviewed. CBC showing polycythemia with hemoglobin of 15.7, MCV of 111.6, and MCH of 39.5. BMP unremarkable. Blood glucose 105. Lactic acid 1.4. Liver profile normal findings. Patient admitted under our services with consultation to infectious disease secondary to herpes zoster infection involving multiple dermatomes in immunocompromised patient. Patient requiring starting on IV acyclovir 10 mg/kg per dose every 8 hours. Patient placed in airborne isolation. Physical exam: Patient seen and fully evaluated at bedside this morning. Erythema and vesicular rash continues to improve. Upon physical exam all vesicles/blisters appear to have crusted over with no open lesions noted. Erythema showing much improvement. Awaiting clearance from infectious disease for possible discharge. Vital signs reviewed and stable. General: Nontoxic, no distress and appears stated age. Derm: Skin warm and dry, normal coloration for ethnicity. Patient with erythemic rash involving right flank, right hip, groin region, and right thigh c onsistent with shingles infection. All blisters appear to have crusted over at this time with no open vesicles noted Head: Atraumatic, normocephalic and symmetric. Eyes: EOM's intact, no lid lag, and anicteric sclera Mouth: no lip lesions, mucus membranes moist Cardiovascular: regular rate and rhythm with normal S1S2, no murmur, positive posterior tibial pulses bilaterally, and cap refill < 2 seconds. Lungs: Respirations even, regular, and unlabored on room air. Lungs CTA bilaterally, no rhonchi, no rales, no wheezing, and no accessory muscle usage. Abdominal: soft, nontender to palpation, no guarding, no appreciable organomegaly Ext: ROM intact. No gross muscle atrophy, no edema, no contractures Neuro: Speech clear, face symmetrical and CN II-XII grossly intact with no noted focal neuro deficits Psych: Alert and oriented to person, place, time, and situation. Appropriate and pleasant affect. Assessment and Plan of Care: Herpes zoster infection involving multiple dermatomes in immunocompromised patient accompanied by the development of cellulitis in right groin/upper thigh region. Rheumatoid on immunomodulator with methotrexate Lymphoma - Hold methotrexate - Continue IV acyclovir 10 mg/kg every 8 hours (Day 4) - Continue IV Rocephin 2 g every 24 hours - Maintain airborne precautions - Infectious disease following, reviewed documentation in chart - Symptomatic care and pain management with Neurontin 100 mg 3 times daily, Tylenol 650 mg every 6 hours as needed for mild pain/fever, Gary 5-325 mg tablets every 4 hours as needed for moderate pain, and morphine 4 mg IVP Q4 hours for severe pain. Hypertension -Monitor vital signs and continue daily medication regimen with amlodipine 10 mg daily and losartan 100 mg daily. Hypothyroidism -Continue levothyroxine 125 mcg daily History of breast cancer -Continue anastrozole 1 mg daily. Data and imaging reviewed: Labs reviewed. CBC showing macrocytosis with MCV of 113.5 and MCH of 39.0. Hemoglobin stable at 14.1 and WBC count of 4.69. BMP unremarkable. Blood glu cose 100. Magnesium 2.3. Vital signs reviewed. Blood pressure elevated this morning at 178/108, heart rate 70, respiratory rate 16, temp 98.1 F, and SpO2 of 98% on room air CODE STATUS: Full code DVT prophylaxis: Lovenox Discussed with: Patient and RN Anticipated discharge date: Pending clinical course Anticipated discharge place: Home Patient was seen independently by Nurse Practitioner. This document was prepared using [employer] dictation software. Please allow for errors in director of institutional sales while rare they do occur. Mc Gaffney NP rendered care for this patient independently, reviewed the findings and plan as documented in the note above and agree with plan. I did not physically speak with or examine the patient on this date. Objective - Vital Signs Vital signs: Vital Signs Temp 98.1 F 09/25/24 08:05 Pulse 70 09/25/24 08:05 Resp 16 09/25/24 08:05 BP 178/108 09/25/24 08:05 Pulse Ox 98 09/25/24 08:05 FiO2 Intake & Output 09/24/24 09/25/24 09/25/24 18:59 06:59 18:59 Intake Total 720 240 Balance 720 240 Intake: Oral 720 240 Other: Voiding Method Toilet Toilet # Voids 4 2 - Labs CBC & Chem 7: 09/25/24 05:33 09/25/24 05:33 Labs: Microbiology - Last 24 Hours (Table) 09/22/24 10:21 Blood Culture - Preliminary Blood
[2024-09-25 15:41] VITALS: BP 172/108; PULSE 67
--- NOTE | 2024-09-25 17:38 | P.DS ---
Providers Date of admission: 09/22/24 10:52 Expected date of discharge: 09/25/24 Attending physician: Pattie Montelongo MD Consults: 09/22/24 10:18 Consult Physician Urgent Consulting Provider: Jesi Mccabe Consult Reason/Comments: Herpes zoster/failure outpatient treat Do you want consulting provider notified?: Yes Primary care physician: Jessica De La Cruz DO Hospital Course: Discharge Diagnosis: Herpes zoster infection involving multiple dermatomes in immunocompromised patient accompanied by the development of cellulitis in right groin/upper thigh region. Patient received 4-day course of IV acyclovir 3-day course of IV antibiotics with Rocephin. Erythemic rash involving right flank, right hip, groin region, and right thigh was consistent with shingles infection. All blisters appear to have crusted over at this time with no open vesicles noted. Erythema from accompanying cellulitis also improved. Patient cleared from inf ectious disease standpoint and recommending discharge home on Valtrex 1000 mg twice daily for an additional 5 days and Ceftin 500 mg twice daily for an additional 5 days. Patient to follow-up outpatient with PCP in 1 to 2 days and with infectious disease in 1 week. Patient instructed to hold methotrexate until follow-up with infectious disease. Rheumatoid on immunomodulator with methotrexate Lymphoma Hypertension Hypothyroidism History of breast cancer Hospital Course: Patient is a very pleasant 69-year-old female with a past medical history of hypertension, hypothyroidism, breast cancer status post surgery on anastrozole, lymphoma not currently undergoing treatment and rheumatoid arthritis on methotrexate. She presented to the emergency department secondary to herpetic lesions/rash. Patient reports first onset of pain and noted vesicular rash on 09/15/2024 and states that she went to urgent care and was diagnosed with shingles and started on Valtrex 1 g every 8 hours x 7 days. Patient reports at that time she notified her cooker chip and was told to stop taking her methotrexate and reports taking her Valtrex as prescribed with no improvement. Patient reports initially having vesicular rash to her right lower flank and reports this worsened and then began to extend to multiple dermatome regions throughout her pelvic/hip region into her groin and now with open vesicular lesions on her right thigh. Patient reports severe burning and pain but denies having any fevers, chills, diaphoresis, or any other complaints at this time. Upon arrival to our facility, patient underwent evaluation in the emergency department. Vital signs upon arrival show blood pressure 178/96, heart rate 116, respiratory rate 16, temp 97.8 F, and SpO2 of 95% on room air. Labs completed and reviewed. CBC showing polycythemia with hemoglobin of 15.7, MCV of 111.6, and MCH of 39.5. BMP unremarkable. Blood glucose 105. Lactic acid 1.4. Liver profile normal findings. Patient admitted under our services with consultation to infectious disease secondary to herpes zoster infection involving multiple dermatomes in immunocompromised patient. Patient requiring starting on IV acyclovir 10 mg/kg per dose every 8 hours. Patient placed in airborne isolation. Patient received 4-day course of IV acyclovir 3-day course of IV antibiotics with Rocephin. Erythemic rash involving right flank, right hip, groin region, and right thigh was consistent with shingles infection. All blisters appear to have crusted over at this time with no open vesicles noted. Erythema from accompanying cellulitis also improved. Patient cleared from infectious disease standpoint and recommending discharge home on Valtrex 1000 mg twice daily for an additional 5 days and Ceftin 500 mg twice daily for an additional 5 days. Patient to follow-up outpatient with PCP in 1 to 2 days and with infectious disease in 1 week. Physical exam: Vital signs reviewed and stable. General: Nontoxic, no distress and appears stated age. Derm: Skin warm and dry, normal coloration for ethnicity. Patient with erythemic rash involving right flank, right hip, groin region, and right thigh consistent with shingles infection. All blisters appear to have crusted over at this time with no open vesicles noted Head: Atraumatic, normocephalic and symmetric. Eyes: EOM's intact, no lid lag, and anicteric sclera Mouth: no lip lesions, mucus membranes moist Cardiovascular: regular rate and rhythm with normal S1S2, no murmur, positive posterior tibial pulses bilaterally, and cap refill < 2 seconds. Lungs: Respirations even, regular, and unlabored on room air. Lungs CTA bilaterally, no rhonchi, no rales, no wheezing, and no accessory muscle usage. Abdominal: soft, nontender to palpation, no guarding, no appreciable organomegaly Ext: ROM intact. No gross muscle atrophy, no edema, no contractures Neuro: Speech clear, face symmetrical and CN II-XII grossly intact with no noted focal neuro deficits Psych: Alert and oriented to person, place, time, and situation. Appropriate and pleasant affect. A total of 33 minutes of time were spent preparing this complex discharge summary. Pt was discharged on 09/25/2024 at 3:47 PM Patient was seen independently by Nurse Practitioner. This document was prepared using [employer] dictation software. Please allow for errors in choir leader while rare they do occur. Mc Gaffney NP rendered care for this patient independently, reviewed the findings and plan as documented in the note above. I did not physically speak with or examine the patient on this date. . Patient Condition at Discharge: Stable Plan - Discharge Summary Discharge Rx Participant: No New Discharge Prescriptions: New cefuroxime axetiL [Ceftin] 500 mg PO BID 5 Days #10 tab valACYclovir HCL [Valtrex] 1,000 mg PO BID 5 Days #10 tablet Continue Omeprazole Magnesium [PriLOSEC OTC] 20 mg PO DAILY PRN PRN Reason: GERD Diclofenac Sodium Gel [Voltaren 1% Gel] 1 applic TOPICAL QID PRN PRN Reason: Pain Telmisartan [Micardis] 40 mg PO DAILY Fluticasone/Umeclidin/Vilanter [Trelegy Ellipta 200-62.5-25] 1 puff INHALATION RT-DAILY PRN PRN Reason: Shortness Of Breath Levothyroxine Sodium [Synthroid] 125 mcg PO DAILY timoloL [timoloL 0.5% Ophth Soln] 1 drop BOTH EYES DAILY Celecoxib [CeleBREX] 200 mg PO DAILY HYDROcodone/APAP 10-325MG [[place] 10-325] 0.5 tab PO QID Nystatin 100,000 Unit/gm Powd [Mycostatin Powder] 1 applic TOPICAL BID PRN PRN Reason: Rash Gabapentin [Neurontin] 200 mg PO HS Folic Acid 3.2 mg PO DAILY Albuterol Inhaler [Ventolin Hfa Inhaler] 2 puff INHALATION RT-QID PRN PRN Reason: Shortness Of Breath Multivitamins, Thera [Multivitamin (formulary)] 1 tab PO DAILY Cyanocobalamin (Vitamin B-12) [Vitamin B-12] 1,000 mcg PO DAILY Magnesium Oxide [Mag-Ox] 500 mg PO DAILY Cyclobenzaprine [Flexeril] 5 - 10 mg PO DAILY PRN PRN Reason: Muscle Spasm Anastrozole [Arimidex] 1 mg PO DAILY Albuterol Nebulized [Ventolin Nebulized] 2.5 mg INHALATION RT-QID PRN PRN Reason: Shortness Of Breath amLODIPine [Norvasc] 10 mg PO DAILY Metoprolol Tartrate [Lopressor] 50 mg PO BID Latanoprost [Latanoprost 0.005%] 1 drop BOTH EYES HS Gabapentin [Neurontin] 100 mg PO W/SUPPER No Action sulfaSALAzine [Azulfidine] 1,000 mg PO BID metHOTREXate sodium 2.5 mg PO DIRECTED Discharge Medication List Albuterol Inhaler [Ventolin Hfa Inhaler] 2 puff INHALATION RT-QID PRN 09/22/24 [History] Albuterol Nebulized [Ventolin Nebulized] 2.5 mg INHALATION RT-QID PRN 09/22/24 [History] Anastrozole [Arimidex] 1 mg PO DAILY 09/22/24 [History] Celecoxib [CeleBREX] 200 mg PO DAILY 09/22/24 [History] Cyanocobalamin (Vitamin B-12) [Vitamin B-12] 1,000 mcg PO DAILY 09/22/24 [History] Cyclobenzaprine [Flexeril] 5 - 10 mg PO DAILY PRN 09/22/24 [History] Diclofenac Sodium Gel [Voltaren 1% Gel] 1 applic TOPICAL QID PRN 09/22/24 [History] Fluticasone/Umeclidin/Vilanter [Trelegy Ellipta 200-62.5-25] 1 puff INHALATION RT-DAILY PRN 09/22/24 [History] Folic Acid 3.2 mg PO DAILY 09/22/24 [History] Gabapentin [Neurontin] 100 mg PO W/SUPPER 09/22/24 [History] Gabapentin [Neurontin] 200 mg PO HS 09/22/24 [History] HYDROcodone/APAP 10-325MG [[place] 10-325] 0.5 tab PO QID 09/22/24 [History] Latanoprost [Latanoprost 0.005%] 1 drop BOTH EYES HS 09/22/24 [History] Levothyroxine Sodium [Synthroid] 125 mcg PO DAILY 09/22/24 [History] Magnesium Oxide [Mag-Ox] 500 mg PO DAILY 09/22/24 [History] Metoprolol Tartrate [Lopressor] 50 mg PO BID 09/22/24 [History] Multivitamins, Thera [Multivitamin (formulary)] 1 tab PO DAILY 09/22/24 [History] Nystatin 100,000 Unit/gm Powd [Mycostatin Powder] 1 applic TOPICAL BID PRN 09/22/24 [History] Omeprazole Magnesium [PriLOSEC OTC] 20 mg PO DAILY PRN 09/22/24 [History] Telmisartan [Micardis] 40 mg PO DAILY 09/22/24 [History] amLODIPine [Norvasc] 10 mg PO DAILY 09/22/24 [History] metHOTREXate sodium 2.5 mg PO DIRECTED 09/22/24 [History] sulfaSALAzine [Azulfidine] 1,000 mg PO BID 09/22/24 [History] timoloL [timoloL 0.5% Ophth Soln] 1 drop BOTH EYES DAILY 09/22/24 [History] cefuroxime axetiL [Ceftin] 500 mg PO BID 5 Days #10 tab 09/25/24 [Rx] valACYclovir HCL [Valtrex] 1,000 mg PO BID 5 Days #10 tablet 09/25/24 [Rx] Follow up Appointment(s)/Referral(s): Jessica De La Cruz DO [Primary Care Provider] - 1-2 days Jesi Mccabe MD [STAFF PHYSICIAN] - 1 Week Patient Instructions/Handouts: Shingles (DC) Activity/Diet/Wound Care/Special Instructions: Continue to hold methotrexate until follow-up with infectious disease physician and cleared to resume. Discharge Disposition: HOME SELF-CARE
--- NOTE | 2024-09-26 13:11 | P.PN ---
Subjective Progress Note Date: 09/25/24 Principal diagnosis: Reason for follow-up is shingles and cellulitis Patient is a 69-year-old female with a past medical history significant for hypertension rheumatoid arthritis presenting to the hospital for further evaluation of her rash to the groin and lower back area that has been diagnosed with the Valtrex but not improvement. On today's evaluation that is 09/25/2024, Patient is afebrile this morning patient denies having any chest pain shortness of breath or cough, the patient is currently on room air, patient denies any abdominal pain no diarrhea no naus ea no vomiting patient did have decrease in discomfort to the lower abdominal pubic area feeling better wants to go home. Patient white count is 4.69 creatinine 0.7 Objective - Vital Signs Vital signs: Vital Signs Temp 98.1 F 09/25/24 08:05 Pulse 70 09/25/24 08:05 Resp 16 09/25/24 08:05 BP 178/108 09/25/24 08:05 Pulse Ox 98 09/25/24 08:05 FiO2 Intake & Output 09/24/24 09/25/24 09/25/24 18:59 06:59 18:59 Intake Total 720 240 Balance 720 240 Intake: Oral 720 240 Other: Voiding Method Toilet Toilet Toilet # Voids 4 2 - Exam GENERAL DESCRIPTION: An elderly female lying in bed in no distress RESPIRATORY SYSTEM: Unlabored breathing , decreased breath sounds at bases HEART: S1 S2 regular rate and rhythm , ABDOMEN: Soft , no tenderness - Labs CBC & Chem 7: 09/25/24 05:33 09/25/24 05:33 Labs: Abnormal Lab Results - Last 24 Hours (Table) 09/25/24 09/25/24 Range/Units 05:33 05:33 RBC 3.62 L (4.10-5.20) X 10*6/uL MCV 113.5 H (80.0-97.0) FL MCH 39.0 H (27.0-32.0) pg Anion Gap 12.20 H (4.00-12.00) mmol/L BUN 5.9 L (9.0-27.0) mg/dL BUN/Creatinine Ratio 8.43 L (12.00-20.00) Ratio Albumin/Globulin Ratio 1.44 L (1.60-3.17) Ratio Microbiology - Last 24 Hours (Table) 09/22/24 10:21 Blood Culture - Preliminary Blood Assessment and Plan (1) Penicillin allergy Status: Acute Code(s): Z88.0 - ALLERGY STATUS TO PENICILLIN SNOMED Code(s): 96640193 (2) Failure of outpatient treatment Status: Acute Code(s): Z78.9 - OTHER SPECIFIED HEALTH STATUS SNOMED Code(s): 024944883 (3) Herpes zoster Status: Acute Code(s): B02.9 - ZOSTER WITHOUT COMPLICATIONS SNOMED Code(s): 7293535 Plan: 1patient presented to hospital with worsening rash that seem to be involving 2 different dermatome including L1 as well as L2 on the right side failing outpat ient acyclovir treatment she evaluated clear about the dosing with her she received low-dose versus her immunosuppression because of methotrexate because there is delayed healing and possible failure of the oral acyclovir, 2-patient has received adequate IV acyclovir consider short course of oral Va ltrex on discharge 3-patient noticed to have a more concentrated erythema to the pubic area and concern for possible cellulitis which seem to have responded to Rocephin she will be able to finish therapy with oral Ceftin discussed with OVEN EQUIPMENT REPAIRER for admitting team Dictation was produced using [employer] dictation software. please excuse any grammatical, word or spelling errors. Time with Patient: Less than 30
== END 2024-09-25 16:09 | disposition home or self-care (01) | DRG 866 ==
LOC: EC 08:53 → 6NMEDSUR 10:52 → OBSVTOIN 10:52 → 6NMEDSUR 13:50
PROVIDERS: ADMIT Student in an Organized Health Care Education/Training Program; ATTEND Student in an Organized Health Care Education/Training Program
DX: B02.7 Disseminated zoster (principal); C85.90 Non-Hodgkin lymphoma, unspecified, unspecified site; L03.314 Cellulitis of groin; C50.919 Malignant neoplasm of unspecified site of unspecified female breast; D84.9 Immunodeficiency, unspecified; D75.1 Secondary polycythemia; M06.9 Rheumatoid arthritis, unspecified; E03.9 Hypothyroidism, unspecified; I10 Essential (primary) hypertension; B02.29 Other postherpetic nervous system involvement; N95.1 Menopausal and female climacteric states; Z78.9 Other specified health status; Z87.891 Personal history of nicotine dependence; Z79.811 Long term (current) use of aromatase inhibitors; Z79.1 Long term (current) use of non-steroidal anti-inflammatories (NSAID); Z79.51 Long term (current) use of inhaled steroids; Z79.891 Long term (current) use of opiate analgesic; Z79.631 Long term (current) use of antimetabolite agent; Z79.890 Hormone replacement therapy; Z79.899 Other long term (current) drug therapy; Z88.0 Allergy status to penicillin
CPT/HCPCS: 36415; 80048; 80053; 83605; 83735; 85025; 85027; 87040; 94640; 96365; 96366; 96375; 99285

== ENCOUNTER → 2024-11-03 | Outpatient (CLI) | payer MEDICARE ==
--- NOTE | 2024-11-03 14:57 | MM ---
Reason for Exam: Screening (asymptomatic). Last screening mammogram was performed 11 month(s) ago. Patient History: Menarche at age 14. Patient has no children. Postmenopausal. Breast cancer, right, age 65. Other cancer at or over age 50. Previous chest radiation therapy at age 66. 04/24/2021, MG stereo VAD BX RT on the Right side. Maternal aunt had ovarian cancer at or over age 50. Maternal cousin had ovarian cancer under age 50. Mother had breast cancer at or over age 50. Prior Study Comparison: 03/14/2021 Bilateral Diagnostic Mammogram, [facility]. 07/19/2022 Bilateral Diagnostic Mammogram, [facility]. 11/18/2023 Bilateral Diagnostic Mammogram, [facility]. Tissue Density: There are scattered areas of fibroglandular density. Findings: Analyzed By CAD. Postsurgical and posttreatment changes right breast. Redemonstrated low axillary tail lymph node on the left. There is no suspicious group of microcalcifications or new suspicious mass in either breast. Overall Assessment: Benign, BI-RAD 2 Management: Screening Mammogram of both breasts in 1 year. Patient should continue monthly self-breast exams. A clinical breast exam by your physician is recommended on an annual basis. This exam should not preclude additional follow-up of suspicious palpable abnormalities. Note on Veronika scores and lifetime risk: 1. A Veronika score greater than 3% is considered moderate risk. If this is the case, consider specialist referral to assess eligibility for a risk reducing agent. 2. If overall lifetime risk for the development of breast cancer is 20% or higher, the patient may qualify for future screening with alternating mammogram and breast MRI. [facility], , 11/03/2024 2:55 PM. Electronically signed and approved by: Lenka Parson M.D. Radiologist
== END | disposition home or self-care (01) ==
LOC: RADMAMWWP 09:31
PROVIDERS: ATTEND Student in an Organized Health Care Education/Training Program
DX: Z12.31 Encounter for screening mammogram for malignant neoplasm of breast (principal); R92.323 Mammographic fibroglandular density, bilateral breasts; Z78.0 Asymptomatic menopausal state; Z85.3 Personal history of malignant neoplasm of breast; Z80.3 Family history of malignant neoplasm of breast
CPT/HCPCS: 77063; 77067